=== PATIENT | female | born 1970 | race Caucasian/White ===

== ENCOUNTER → 2019-04-03 | Outpatient (CLI) | payer MEDICAID, OTHER ==
[2019-04-03 07:56] VITALS: BP 132/83; PULSE 82; RESP 16; TEMP 98.1; BMI 44.9
--- NOTE | 2019-04-03 08:43 | P.HPOB ---
History of Present Illness H&P Date: 04/03/19 Chief Complaint: The patient is here for her routine gynecologic exam and ma mmogram. This is a 48-year-old with an LMP of 02/28/2019. The patient status post tubal ligation. Her menstrual periods were fairly regular about every 24 days. Between December and February they became more frequent. After her LMP she has not had any bleeding. She denies any significant hot flashes. She does have some night sweats, but this is not new for her. She is otherwise without comp laints. It has been about 5 1/2 years since her last exam. Review of Systems She has gained about 40 pounds since 2013. More recently she has lost about 16 pounds with diet and exercise. She denies respiratory, cardiac, or G.I. problems. Past Medical History Past Medical History: Asthma Additional Past Medical History / Comment(s): Childhood asthma. Osteopenia. 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 History of Any Multi-Drug Resistant Organisms: None Reported Past Surgical History: Section, Orthopedic Surgery, Tubal Ligation Additional Past Surgical History / Comment(s): Arthroscopic knee surgery. One section(3 vaginal del.). Past Psychological History: No Psychological Hx Reported Smoking Status: Former smoker Past Alcohol Use History: Occasional (3 per month) Past Drug Use History: None Reported Additional History: She has been since 1989. 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 - Past Family History Father Family Medical History: Cancer Additional Family Medical History / Comment(s): Cancer of the throat. Mother Family Medical History: CVA/TIA, Diabetes Mellitus Medications and Allergies Home Medications Medication Instructions Recorded Confirmed Type No Known Home Medications 04/03/19 04/03/19 History Allergies Allergy/AdvReac Type Severity Reaction Status Date / Time Penicillins Allergy Swelling Unverified 04/03/19 07:57 Exam Vital Signs Temp Pulse Resp BP Pulse Ox 04/03/19 07:49 98.1 F 82 16 132/83 98 Intake and Output 04/02/19 04/03/19 04/03/19 22:59 06:59 14:59 Other: Weight 111.584 kg Height 5'2", weight 246 pounds, BMI 45.0. This is a well-developed well-nourished heavyset white female who is alert and oriented times 3 in no acute distress. HEENT: Within normal limits. NECK: Supple without mass or thyromegaly. CHEST AND LUNGS: Clear to auscultation. HEART: Regular rate and rhythm. BREASTS: Are without mass or discharge. AXILLARY EXAM: Negative for adenopathy. BACK: Negative for CVA tenderness. ABDOMEN: Soft, nontender, without palpable masses. PELVIC EXAM: Normal external genitalia. Cervix and vagina appear normal. There is no unusual discharge. There is no evidence of prolapse. The uterus is midposition, nongravid size and nontender. There are no palpable adnexal masses or tenderness. RECTAL EXAM: negative for mass or tenderness and is negative for occult blood. EXTREMITIES: Nontender. IMPRESSION: 1. 48 year old perimenopausal female status post tubal ligation with recent menstrual irregularity. 2. Normal gynecologic exam. 3. History of focal osteopenia in the right hip. PLAN: 1. Pap smear was performed. 2. Self breast awareness was discussed with the patient. 3. Screening mammogram will be done today. 4. Osteoporosis prevention was discussed. I have stressed the importance of adequate calcium, vitamin D and regular exercise. Recommended amounts of calcium and vitamin D were also discussed. We will plan and repeating bone density testing after she is menopausal. 5. The patient will keep him menstrual calendar and will return if she is having greater menstrual irregularity or problems. 6.She was advised to return in one year for her annual well woman exam.
--- NOTE | 2019-04-03 11:54 | MM ---
Reason for exam: screening (asymptomatic). Last mammogram was performed 5 years and 5 months ago. History: Took hormonal contraceptives for 10 years. Physical Findings: A clinical breast exam by your physician is recommended on an annual basis and results should be correlated with mammographic findings. MG 3D Screening Mammo W/Cad Bilateral CC and MLO view(s) were taken. Prior study comparison: November 06, 2013, bilateral digital screening mammo w/CAD. December 10, 2004, bilateral screening mammogram. There are scattered fibroglandular densities. There are benign appearing round calcifications bilaterally. There is no discrete abnormality. ASSESSMENT: Benign, BI-RAD 2 RECOMMENDATION: Routine screening mammogram of both breasts in 1 year.
== END | disposition home or self-care (01) ==
LOC: WWCWWP 07:39
PROVIDERS: ATTEND Obstetrics & Gynecology
DX: Z12.31 Encounter for screening mammogram for malignant neoplasm of breast (principal)
CPT/HCPCS: 77063; 77067

== ENCOUNTER 2019-09-22 08:43 | Emergency (ER) | payer MEDICAID, OTHER ==
[2019-09-22 08:59] VITALS: BP 138/82; PULSE 85; RESP 18; TEMP 98
--- NOTE | 2019-09-22 09:28 | ED ---
Recheck HPI - General Chief Complaint: Recheck/Abnormal Lab/Rx Stated Complaint: Needle stick Time Seen by Provider: 09/22/19 09:13 Source: patient, RN notes reviewed, old records reviewed Mode of arrival: ambulatory Limitations: no limitations - History of Present Illness Initial Comments: This Patient is a 48-year-old female presents today with accidental needlestick. Patient reports that she was stuck in her left index finger. Patient reports that she does have access to the source of this time she works on for [employer]. Patient states that she has had the finger bleeding and clean it with soap and water afterwards. Patient reports that she is vaccinated against hepatitis B. - Related Data Home Medications Medication Instructions Recorded Confirmed No Known Home Medications 04/03/19 04/03/19 Allergies Allergy/AdvReac Type Severity Reaction Status Date / Time Penicillins Allergy Swelling Verified 09/22/19 08:56 Review of Systems ROS Statement: Those systems with pertinent positive or pertinent negative responses have been documented in the HPI. ROS Other: All systems not noted in ROS Statement are negative. Past Medical History Past Medical History: Asthma, Thyroid Disorder Additional Past Medical History / Comment(s): Childhood asthma. Osteopenia. 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 History of Any Multi-Drug Resistant Organisms: None Reported Past Surgical History: Section, Orthopedic Surgery, Tubal Ligation Additional Past Surgical History / Comment(s): Arthroscopic knee surgery. One section(3 vaginal del.). Past Psychological History: No Psychological Hx Reported Smoking Status: Former smoker Past Alcohol Use History: Rare Past Drug Use History: None Reported - Past Family History Father Family Medical History: Cancer Additional Family Medical History / Comment(s): Cancer of the throat. Mother Family Medical History: CVA/TIA, Diabetes Mellitus General Exam - General Exam Comments Initial Comments: 48-year-old female. Alert and oriented 3. Patient appears in no significant distress. Limitations: no limitations General appearance: alert, in no apparent distress Head exam: Present: atraumatic, normocephalic, normal inspection Eye exam: Present: normal appearance, PERRL, EOMI. Absent: scleral icterus, conjunctival injection, periorbital swelling ENT exam: Present: normal exam, mucous membranes moist Neck exam: Present: normal inspection. Absent: tenderness, meningismus, lymphadenopathy Respiratory exam: Present: normal lung sounds bilaterally. Absent: respiratory distress, wheezes, rales, rhonchi, stridor Cardiovascular Exam: Present: regular rate, normal rhythm, normal heart sounds. Absent: systolic murmur, diastolic murmur, rubs, gallop, clicks GI/Abdominal exam: Present: soft, normal bowel sounds, other. Absent: distended, tenderness, guarding, rebound, rigid Extremities exam: Present: normal inspection, full ROM, normal capillary refill, other (needle stick injury left index finger. bleeding stopped at this time. ). Absent: tenderness, pedal edema, joint swelling, calf tenderness Back exam: Present: normal inspection Neurological exam: Present: alert, oriented X3, CN II-XII intact Psychiatric exam: Present: normal affect, normal mood Skin exam: Present: warm, dry, intact, normal color. 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 She presents today for approximately 6 over left index finger. This time Patient does have access to the source. Patient's labs and sources were drawn. Patient will be informed of source testing once this was resulted to myself. Patient will avoid prophylaxis treatment at this time until no vomiting the sources status. Patient is agreeable to plan. Disposition Clinical Impression: Needlestick injury accident Disposition: HOME SELF-CARE Condition: Good Instructions (If sedation given, give patient instructions): Needle Stick Injuries (ED) Additional Instructions: Patient can follow-up in regards to the sources blood work when this was resulted to provider. Return to the emergency department if any alarming signs or symptoms occur. Is patient prescribed a controlled substance at d/c from ED?: No Referrals: Ernst Whitt MD [Primary Care Provider] - 1-2 days Time of Disposition: 09:28
== END 2019-09-22 11:09 | disposition home or self-care (01) ==
LOC: EC 08:43
DX: S69.92XA Unspecified injury of left wrist, hand and finger(s), initial encounter (principal); Z88.0 Allergy status to penicillin; Z87.891 Personal history of nicotine dependence; W46.1XXA Contact with contaminated hypodermic needle, initial encounter
CPT/HCPCS: 99283

== ENCOUNTER → 2021-07-01 | Outpatient (CLI) | payer OTHER ==
[2021-07-01 10:41] LABS: HCT 40.8 % (37.2-46.3); HGB 13.6 g/dL (12.0-15.0); MCH 30.4 pg (27.0-32.0); MCHC 33.3 g/dL (32.0-37.0); MCV 91.3 fL (80.0-97.0); Mean Platelet Volume 11.5 fL (9.5-12.2); Platelet Count 233 X 10*3/uL (140-440); RBC 4.47 X 10*6/uL (4.10-5.20); RDW 14.2 % (11.5-14.5); WBC 5.55 X 10*3/uL (4.50-10.00)
[2021-07-02 04:14] LABS: African American GFR (CKD) 116.3 (60.0-200.0); Albumin 4.3 g/dL (3.80-4.90); Albumin/Globulin Ratio 1.54 (1.60-3.17); BUN/Creat Ratio 21.43 Ratio (12.00-20.00); Calcium 9.2 mg/dL (8.7-10.3); Chol/HDL Ratio 2.79; Globulin 2.8 g/dL (1.6-3.3); LDL Cholesterol,Calculated 95.8 mg/dL (0.0-131.0); Non-African American GFR(CKD) 100.3 (60.0-200.0); Potassium 4.6 mmol/L (3.5-5.5); Total Bilirubin 0.4 mg/dL (0.2-1.2); Total Protein 7.1 g/dL (6.2-8.2); VLDL Calculation 15.2 mg/dL (5.00-40.00)
== END | disposition home or self-care (01) ==
LOC: LABWHC1 08:12
PROVIDERS: ATTEND Nurse Practitioner Family
DX: Z13.1 Encounter for screening for diabetes mellitus (principal); Z13.0 Encounter for screening for diseases of the blood and blood-forming organs and certain disorders involving the immune mechanism; Z13.220 Encounter for screening for lipoid disorders
CPT/HCPCS: 36415; 80053; 80061; 85027

== ENCOUNTER → 2022-03-01 | Outpatient (CLI) | payer OTHER ==
[2022-03-01 14:58] LABS: African American GFR (CKD) 116.1 (60.0-200.0); BUN/Creat Ratio 15.26 Ratio (12.00-20.00); Blood Urea Nitrogen 10.5 mg/dL (9.0-27.0); Calcium 9.4 mg/dL (8.7-10.3); Chloride 104 mmol/L (96-109); Glucose 93 mg/dL (70-110); Non-African American GFR(CKD) 100.2 (60.0-200.0); Potassium 4.3 mmol/L (3.5-5.5); Sodium 140 mmol/L (135-145)
== END | disposition home or self-care (01) ==
LOC: LABWHC1 10:19
PROVIDERS: ATTEND Nurse Practitioner Family
DX: I10 Essential (primary) hypertension (principal); Z86.39 Personal history of other endocrine, nutritional and metabolic disease
CPT/HCPCS: 36415; 80048; 84443

== ENCOUNTER → 2024-03-27 | Outpatient (CLI) | payer BC, OTHER ==
[2024-03-27 08:57] VITALS: BP 137/73; PULSE 76; RESP 17; TEMP 98.4
--- NOTE | 2024-03-27 09:41 | P.HPOB ---
History of Present Illness H&P Date: 03/27/24 Chief Complaint: The patient is here for her routine gynecologic exam and ma mmogram. This is a 53-year-old -0-3-3 with an LMP of 12/11/2022. The patient is here to reestablish with this office. It has been about 5 years since her last pelvic exam. She is without gynecologic complaints and denies any postmenopausal bleeding. She has minimal hot flashes. Review of Systems She has lost about 26 pounds over the past 5 years and this has been intentional. She denies respiratory, cardiac, or GI problems. Past Medical History Past Medical History: Asthma, Thyroid Disorder Additional Past Medical History / Comment(s): Childhood asthma. Osteopenia. Khushboo's disease with hypothyroidism. 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 History of Any Multi-Drug Resistant Organisms: None Reported Past Surgical History: Section, Orthopedic Surgery, Tubal Ligation Additional Past Surgical History / Comment(s): Arthroscopic knee surgery. One section(3 vaginal del.). 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 - Past Family History Father Family Medical History: Cancer Additional Family Medical History / Comment(s): Cancer of the throat. Mother Family Medical History: CVA/TIA, Diabetes Mellitus Additional Family Medical History / Comment(s): Vascular disease. Medications and Allergies Home Medications Medication Instructions Recorded Confirmed Type Levothyroxine Sodium [Synthroid] 25 mcg PO DAILY 03/27/24 03/27/24 History Multivitamin [Multivitamins Adult 1 tab PO DAILY 03/27/24 03/27/24 History Gummies] Topiramate [Topamax] 25 mg PO BID 03/27/24 03/27/24 History Vitamin B Complex 1 cap PO DAILY 03/27/24 03/27/24 History Allergies Allergy/AdvReac Type Severity Reaction Status Date / Time Penicillins Allergy Swelling Verified 03/27/24 08:51 Exam Vital Signs Temp Pulse Resp BP Pulse Ox 03/27/24 08:54 98.4 F 76 17 137/73 98 Intake and Output 06/10/24 06/11/24 06/11/24 22:59 06:59 14:59 Other: Weight 99.79 kg Height 5 feet 2 inches, weight 220 pounds, BMI 40.2. This is a well-developed well-nourished heavyset female who is alert and oriented times 3 in no acute distress. HEENT: Within normal limits. NECK: Supple without mass or thyromegaly. CHEST AND LUNGS: Clear to auscultation. HEART: Regular rate and rhythm. BREASTS: Are without mass or discharge. AXILLARY EXAM: Negative for adenopathy. BACK: Negative for CVA tenderness. ABDOMEN: Soft, nontender, without palpable masses. PELVIC EXAM: Normal external genitalia with mild atrophy. Cervix and vagina appear normal with mild atrophy. There is no unusual discharge. There is no evidence of prolapse. The uterus is midposition, nongravid size and nontender. There are no palpable adnexal masses or tenderness. RECTAL EXAM: Rectovaginal exam is negative for mass or tenderness and is negative for occult blood. EXTREMITIES: Nontender. IMPRESSION: 1. 53-year-old menopausal female with normal gynecologic exam 2. History of focal osteopenia by 2014 bone density test. PLAN: 1. Pap smear cotest was performed. 2. Self breast awareness was discussed with the patient. We have also discussed symptoms associated with inflammatory breast cancer. 3. Screening mammogram will be done today. 4. Osteoporosis prevention was discussed. I have stressed the importance of adequate calcium, vitamin D and regular exercise. Recommended amounts of calcium and vitamin D were also discussed. She states she recently had a bone density test done at [facility] and states it was normal but there was some comment about the right hip and she is not sure what it showed. She will have a copy sent to me. 5. She recently has done Cologuard testing through her PCP. Colorectal cancer screening will continue to be done through her PCP. 6. She was advised to return in one year for her annual well woman exam.
--- NOTE | 2024-03-28 13:14 | MM ---
Reason for Exam: Screening (asymptomatic). Last mammogram was performed 1 year(s) and 1 month(s) ago. Patient History: Menarche at age 9. First Full-Term at age 22. Patient used Hormonal Contraceptives for 10 years. Risk Values: Betsy 5 year model risk: 1.1%. NCI Lifetime model risk: 8.2%. Prior Study Comparison: 12/10/2004 Bilateral Screening Mammogram, [facility]. 11/06/2013 Bilateral Screening Mammogram, [facility]. 04/03/2019 Bilateral Screening Mammogram, [facility]. 03/01/2023 Bilateral Screening Mammogram, [facility]. Tissue Density: There are scattered areas of fibroglandular density. Findings: Analyzed By CAD. There is no suspicious group of microcalcifications or new suspicious mass in either breast. Overall Assessment: Negative, BI-RAD 1 Management: Screening Mammogram of both breasts in 1 year. . Patient should continue monthly self-breast exams. A clinical breast exam by your physician is recommended on an annual basis. This exam should not preclude additional follow-up of suspicious palpable abnormalities. Note on Betsy scores and lifetime risk: 1. A Betsy score greater than 3% is considered moderate risk. If this is the case, consider specialist referral to assess eligibility for a risk reducing agent. 2. If overall lifetime risk for the development of breast cancer is 20% or higher, the patient may qualify for future screening with alternating mammogram and breast MRI. Electronically signed and approved by: Diego Kim M.D. Radiologis
== END ==
LOC: WWCWWP 08:31
PROVIDERS: ATTEND Obstetrics & Gynecology
DX: Z12.31 Encounter for screening mammogram for malignant neoplasm of breast (principal); M85.80 Other specified disorders of bone density and structure, unspecified site; F17.200 Nicotine dependence, unspecified, uncomplicated; Z78.0 Asymptomatic menopausal state; Z88.0 Allergy status to penicillin
CPT/HCPCS: 77063; 77067

== ENCOUNTER → 2025-02-20 | Outpatient (CLI) | payer OTHER, BC ==
[2025-02-20 10:25] LABS: HCT 40.4 % (37.2-46.3); HGB 13.3 g/dL (12.0-15.0); MCH 30.1 pg (27.0-32.0); MCHC 32.9 g/dL (32.0-37.0); MCV 91.4 FL (80.0-97.0); Mean Platelet Volume 11.2 FL (9.5-12.2); NRBC Per 100 WBC 0 X 10*3/uL (0.00-0.01); Platelet Count 244 X 10*3/uL (140-440); RBC 4.42 X 10*6/uL (4.10-5.20); RDW 13.3 % (11.5-14.5)
[2025-02-20 10:48] LABS: ALT 18 U/L (8-44); AST 19 U/L (13-35); Albumin 4.1 g/dL (3.8-4.9); Albumin/Globulin Ratio 1.58 Ratio (1.60-3.17); Alkaline Phosphatase 44 U/L (41-126); BUN/Creat Ratio 20.43 Ratio (12.00-20.00); Blood Urea Nitrogen 14.3 mg/dL (9.0-27.0); Calcium 9.2 mg/dL (8.7-10.3); Carbon Dioxide 22.6 mmol/L (21.6-31.8); Chloride 105 mmol/L (96-109); Chol/HDL Ratio 2.57 Ratio; Globulin 2.6 g/dL (1.6-3.3); Glucose 94 mg/dL (70-110); LDL Cholesterol,Calculated 96.9 mg/dL (0.0-131.0); Potassium 4.3 mmol/L (3.5-5.5); Sodium 140 mmol/L (135-145); Total Bilirubin 0.4 mg/dL (0.3-1.2); Total Protein 6.7 g/dL (6.2-8.2); VLDL Calculation 11.84 mg/dL (5.00-40.00)
== END | disposition home or self-care (01) ==
LOC: LABWHC1 07:13
PROVIDERS: ATTEND Family Medicine
DX: Z13.1 Encounter for screening for diabetes mellitus (principal); Z13.0 Encounter for screening for diseases of the blood and blood-forming organs and certain disorders involving the immune mechanism; Z13.220 Encounter for screening for lipoid disorders
CPT/HCPCS: 36415; 80053; 80061; 84443; 85027

== ENCOUNTER → 2025-04-01 | Outpatient (CLI) | payer MEDICAID, BC ==
--- NOTE | 2025-04-01 09:28 | MM ---
Reason for Exam: Screening (asymptomatic). Last screening mammogram was performed 12 month(s) ago. Patient History: Menarche at age 9. First Full-Term at age 22. Postmenopausal. Patient used Hormonal Contraceptives for 10 years. Risk Values: Betsy 5 year model risk: 1.2%. NCI Lifetime model risk: 8.1%. Prior Study Comparison: 04/03/2019 Bilateral Screening Mammogram, [facility]. 03/01/2023 Bilateral Screening Mammogram, [facility]. 03/27/2024 Bilateral MG 3D screening mammo w/cad, [facility]. Tissue Density: There are scattered areas of fibroglandular density. Findings: Analyzed By CAD. There is no suspicious group of microcalcifications or new suspicious mass in either breast. Overall Assessment: Negative, BI-RAD 1 Management: Screening Mammogram of both breasts in 1 year. Patient should continue monthly self-breast exams. A clinical breast exam by your physician is recommended on an annual basis. This exam should not preclude additional follow-up of suspicious palpable abnormalities. Note on Betsy scores and lifetime risk: 1. A Betsy score greater than 3% is considered moderate risk. If this is the case, consider specialist referral to assess eligibility for a risk reducing agent. 2. If overall lifetime risk for the development of breast cancer is 20% or higher, the patient may qualify for future screening with alternating mammogram and breast MRI. [facility], , 04/01/2025 9:26 AM. Electronically signed and approved by: Modesto Garcia M.D. Radiologist
== END | disposition home or self-care (01) ==
LOC: RADMAMWWP 07:10
PROVIDERS: ATTEND Family Medicine
DX: Z12.31 Encounter for screening mammogram for malignant neoplasm of breast (principal); R92.323 Mammographic fibroglandular density, bilateral breasts; Z78.0 Asymptomatic menopausal state; Z92.0 Personal history of contraception
CPT/HCPCS: 77063; 77067

== ENCOUNTER → 2025-05-03 | Outpatient (CLI) | payer MEDICAID, BC | END | disposition home or self-care (01) | LOC: LABWHC1 07:09 | PROVIDERS: ATTEND Nurse Practitioner Family | DX: E03.9 Hypothyroidism, unspecified (principal) | CPT/HCPCS: 36415; 84443 ==